=== PATIENT | male | born 1965 | race Two or more races ===

== ENCOUNTER 2017-12-31 10:15 | Emergency (ER) | payer MEDICAID ==
[~2017-12-31] VITALS: Ht 172.7 cm; Wt 71.0 kg
[2017-12-31] MEDS ORDERED: METH40TA3 PO (11:00)
[2017-12-31] MEDS ORDERED: BICILLIN-LA 2,400,000 UNITS/4 ML IM ONE (11:30)
[2017-12-31] MEDS ORDERED: CEFTRIAXONE 1,000 MG IM ONE (11:30)
[2017-12-31] MEDS ORDERED: AZITHROMYCIN 500 MG TABLET PO ONE (11:30)
[2017-12-31] MEDS ORDERED: LIDOCAINE-MPF 1%, 2ML ONE ×2 (11:47→11:50)
[2017-12-31] MEDS ORDERED: AZITHROMYCIN 250 MG TABLET ONE (11:47)
[2017-12-31] MEDS ORDERED: CEFTRIAXONE 250 MG ONE (11:47)
[2017-12-31 12:18] VITALS: BP 134/84
== END 2017-12-31 12:20 | disposition home or self-care (01) ==
LOC: ED 11:00
DX: A57 Chancroid (principal); F17.200 Nicotine dependence, unspecified, uncomplicated; Z20.2 Contact with and (suspected) exposure to infections with a predominantly sexual mode of transmission
CPT/HCPCS: 36415; 86592; 86780; 87491; 87591; 96372; 99284; J0561; J0696